=== PATIENT | male | born 1980 ===

== ENCOUNTER 2020-05-02 08:15 | Outpatient (CLI) | payer BC, SELFPAY ==
--- NOTE | ~2020-05-02 | MR_ITS ---
EXAMINATION: MR brain/brain stem wo con EXAM DATE: 05/02/2020 09:18 INDICATION: Occipital headaches, severe for couple of weeks. TECHNIQUE: Magnetic resonance imaging (MRI) of the brain/brain stem obtained without contrast. Britney al T1, axial diffusion, gradient echo (T2*), T1, T2, FLAIR sequences obtained. There is no prior st udy for comparison. FINDINGS: There are no areas of restricted diffusion to suggest acute infarction. There is no acute hemorrhage seen on the T2*, a hemosiderin sensitive sequence. No intraparenchymal brain mass. The ve ntricles are normal in size. There are no extra-axial collections. Flow voids are seen in the cereb ral arteries on the T2-weighted sequences consistent with their expected patency. The orbits are unr emarkable. Soft tissue is unremarkable. IMPRESSION: 1. Unremarkable brain MRI examination. Reviewed, dictated and finalized at location A. PROCESSOR
== END 2020-05-02 08:16 ==
LOC: MICIMG 08:16
PROVIDERS: Visit Provider Internal Medicine
DX: R51.9 Headache, unspecified (principal)
CPT/HCPCS: 70551